=== PATIENT | female | born 1950 | race Caucasian/White ===

== ENCOUNTER 2022-07-07 09:38 | Day surgery (SDC) | payer MEDICARE, SELFPAY ==
--- NOTE | 2022-07-06 08:48 | HO.ANESPROP2 ---
Documented by User: Emilee Malave NP 07/06/22 10:39 HPI - Anesthesia Eval Consult details Narrative: 72yo F for Colonoscopy CKD St 3. Follows renal yearly. Stable at 07/2021 visit. Baseline creat = 1.3-1.9 [facility] Past Medical History Medical History (Updated 07/06/22 @ 10:07 by Emilee Malave NP) Chronic kidney disease CVA (cerebral vascular accident) Diabetes mellitus GERD (gastroesophageal reflux disease) HTN (hypertension) Hyperlipidemia Nephrolithiasis Surgical History Surgical History (Updated 07/07/22 @ 09:43 by Katerine Schwartz) H/O eye surgery History of cataract surgery History of colonoscopy Social History Social History Patient Tobacco Use Status: Never used Tobacco Use of substances other than those prescribed or required for medical reasons: No Are you DNR?: Yes Advance Directives: No Advance Directives Information Provided: Yes Meds Allergies Allergy/AdvReac Type Severity Reaction Status Date / Time [facility] AdvReac Vomiting Verified 07/07/22 09:43 lisinopril AdvReac Cough Verified 07/07/22 09:43 Home Medications Medication Instructions Recorded Confirmed Last Taken Type atorvastatin 40 mg tablet 40 mg PO DAILY 07/06/22 07/07/22 Unknown History clopidogrel 75 mg tablet 75 mg PO DAILY 07/06/22 07/07/22 06/30/22 History empagliflozin 10 mg tablet 10 mg PO DAILY 07/06/22 07/07/22 Unknown History (Jardiance) famotidine 20 mg tablet 20 mg PO DAILY 07/06/22 07/07/22 Unknown History glipizide 5 mg tablet, extended 15 mg PO 07/06/22 Unknown History release 24 hr hydrochlorothiazide 25 mg tablet 25 mg PO BID 07/06/22 07/07/22 07/05/22 History insulin degludec 200 unit/mL (3 50 unit subcut 07/06/22 07/07/22 08:00 History mL) subcutaneous pen (Tresiba 20 UNITS FlexTouch U-200 insulin) losartan 100 mg tablet 100 mg PO DAILY 07/06/22 07/07/22 07/07/22 History pantoprazole 40 mg tablet,delayed 40 mg PO DAILY 07/06/22 07/07/22 Unknown History release semaglutide 0.25 mg or 0.5 mg (2 0.25 mg subcut DIRECTED 07/06/22 07/07/22 Unknown History mg/1.5 mL) subcutaneous pen injector (Ozempic) Exam Exam Date and Time: July 06, [id number] Assessment and Plan Assessment Anesthesia Assessment: Chart Reviewed Documented by User: Christine Hurley MD 07/07/22 11:10 [facility] Past Medical History Medical History (Updated 07/06/22 @ 10:07 by Emilee Malave NP) Chronic kidney disease CVA (cerebral vascular accident) Diabetes mellitus GERD (gastroesophageal reflux disease) HTN (hypertension) Hyperlipidemia Nephrolithiasis Family History Family history of problems with anesthesia: No Surgical History Surgical History (Updated 07/07/22 @ 09:43 by Katerine Schwartz) H/O eye surgery History of cataract surgery History of colonoscopy History of Problems with Anesthesia: No Social History Social History Patient Tobacco Use Status: Never used Tobacco Use of substances other than those prescribed or required for medical reasons: No Are you DNR?: Yes Advance Directives: No Advance Directives Information Provided: Yes Meds Allergies Allergy/AdvReac Type Severity Reaction Status Date / Time dulaglutide [From [facility]] AdvReac Vomiting Verified 07/07/22 09:43 lisinopril AdvReac Cough Verified 07/07/22 09:43 Home Medications Medication Instructions Recorded Confirmed Last Taken Type atorvastatin 40 mg tablet 40 mg PO DAILY 07/06/22 07/07/22 Unknown History clopidogrel 75 mg tablet 75 mg PO DAILY 07/06/22 07/07/22 06/30/22 History empagliflozin 10 mg tablet 10 mg PO DAILY 07/06/22 07/07/22 Unknown History (Jardiance) famotidine 20 mg tablet 20 mg PO DAILY 07/06/22 07/07/22 Unknown History glipizide 5 mg tablet, extended 15 mg PO 07/06/22 Unknown History release 24 hr hydrochlorothiazide 25 mg tablet 25 mg PO BID 07/06/22 07/07/22 07/05/22 History insulin degludec 200 unit/mL (3 50 unit subcut 07/06/22 07/07/22 08:00 History mL) subcutaneous pen (Tresiba 20 UNITS FlexTouch U-200 insulin) losartan 100 mg tablet 100 mg PO DAILY 07/06/22 07/07/22 07/07/22 History pantoprazole 40 mg tablet,delayed 40 mg PO DAILY 07/06/22 07/07/22 Unknown History release semaglutide 0.25 mg or 0.5 mg (2 0.25 mg subcut DIRECTED 07/06/22 07/07/22 Unknown History mg/1.5 mL) subcutaneous pen injector (Ozempic) Exam Airway Mallampati Class: II TM Dist: >3cm Neck ROM: Full Heart: rr Lungs: cta Assessment and Plan Assessment Anesthesia Assessment: Anesthesia Plan Discussed Final Anesthetic Review Family History of Problems with Anesthesia: No History of Problems with Anesthesia: No NPO: Yes ASA Class: II Final Preanesthetic Review: No Changes in Pt Med Stat, Meds/Allgs Chart Reviewed, Consent Obtained/Reviewed and Anes Risks/Benef Reviewed Patient Risk: Low Procedure Risk: Low Anesthetic Plan Anesthetic Plan: MAC: Disposition: Standard PACU
[2022-07-07 09:45] VITALS: BMI 28.6
[2022-07-07 09:55] LABS: Glucose, Whole Blood 113 mg/dL (60-115)
[2022-07-07 09:57] VITALS: BP 118/63; PULSE 82; RESP 16; TEMP 36.7; O2SAT 97
[2022-07-07] MEDS: Lactated Ringers 1,000 ML 100 ML IVCONT (10:04)
--- NOTE | 2022-07-07 10:11 | PC.NURSE ---
PATIENTS HEALTH CARE PROXY IS DAUGHTER SHARAN LINDO [phone]
--- NOTE | 2022-07-07 10:30 | P.HPSUR_ITS ---
Pre-Procedural Eval Section A Date of Service: 07/07/22 Section B Chief Complaint: Encounter for screening for malignant neoplasm of Details of Present Illness: screening Relevant Family History (Specify if Yes): No Relevant Social History: None Present Medications: see Short Stay Collaborative assessment Medical History: No relevant PMH History of Previous Operations: No relevant previous surgery Allergies: Allergies Allergy/AdvReac Type Severity Reaction Status Date / Time dulaglutide [From [facility]] AdvReac Vomiting Verified 07/07/22 09:43 lisinopril AdvReac Cough Verified 07/07/22 09:43 Review of Systems Sugical H&P ROS: Negative: Constitution, Cardiovascular, Respiratory, Neurological, Psychiatric, Hem-Onc, Allergic/Immunologic, Gastrointestinal, Genitourinary, Musculoskeletal, Integumentary, Endocrine and Eyes/Ears /Nose/Throat Exam Surgical H&P Exam: Normal: HEENT, Normal: Heart, Normal: Lungs, Normal: Extremities, Normal: Abdomen, Normal: Skin and Normal: Neurological Plan Diagnosis/Plan: Unchanged I have reviewed the history and physical and performed a pertinent physical examination on my patient. No changes have occurred unless specified. Time Spent With Patient Time: Total time managing care of this patient today ____ minutes.
--- NOTE | 2022-07-07 11:20 | PM.OP ---
Brief Operative Note Date of Service: 07/07/22 Pre-op diagnosis: screening Post-op diagnosis: same Procedure: colonoscopy Surgeon: Laron Suarez Anesthesia: MAC Was an Performance Test Engineer used for this Procedure?: No Estimated blood loss (mL): 2 Pathology: none sent Condition: stable Disposition: PACU
[2022-07-07 11:25] VITALS: BP 79/39; PULSE 70; RESP 16; TEMP 36.2; O2SAT 98
[2022-07-07 11:40] VITALS: BP 109/58; PULSE 74; RESP 16; TEMP 36.8; O2SAT 99
--- NOTE | 2022-07-07 12:08 | OP_ITS ---
DATE OF SERVICE: 07/07/2022 SURGEON: Laron Suarez MD INDICATIONS: Colon cancer screening. PREOPERATIVE DIAGNOSIS: POSTOPERATIVE DIAGNOSIS: PROCEDURE PERFORMED: Colonoscopy to the terminal ileum with snare polypectomy and biopsy. ESTIMATED BLOOD LOSS: COMPLICATIONS: ANESTHESIA: Monitored anesthesia care. ASSISTANTS: SPECIMENS: DESCRIPTION OF PROCEDURE: A history and physical was performed. The risks and benefits of the procedure were explained to the patient. Informed consent was obtained. The patient was placed in the left lateral decubitus position. A digital rectal exam was performed and was found to be normal. The Olympus pediatric video colonoscope was introduced into the rectum and advanced to the cecum without difficulty. The cecum was identified by transillumination, palpation, and identification of the ileocecal valve. Examination was performed. The scope was removed. She tolerated the procedure well and was returned to the recovery area in stable condition. FINDINGS: The terminal ileum was examined and appeared normal. The visualized colonic mucosa was normal. There was some stool left, mainly liquid, which was suctioned and some small chunks which were not suctioned. This limited the sensitivity examination for detection of small polyps to a minor degree 3 polyps were identified and removed using a combination of a hot snare and biopsy forceps. The first 2 were snared and were located at the hepatic flexure and 55 cm. The 3rd polyp was at 30 cm and measured less than 5 mm, this was removed with a biopsy forceps. There was moderate sigmoid diverticulosis with scattered diverticula throughout the remainder of the colon. No other polyps were identified. Retroflexed examination showed moderate-sized internal hemorrhoids. IMPRESSION: Colon polyps. RECOMMENDATION: Follow up the biopsy results. MD ARMINDA Greene/GOYOL / [id number]
== END 2022-07-07 12:28 | disposition home or self-care (01) ==
PROVIDERS: PCP Family Medicine; Visit Provider Internal Medicine Gastroenterology
PROC: 0DJD8ZZ Inspection of Lower Intestinal Tract, Via Natural or Artificial Opening Endoscopic (ICD-10-PCS; CPT 45378; principal; 2022-07-07 10:50)
DX: Z12.11 Encounter for screening for malignant neoplasm of colon (principal); Z86.010 Personal history of colon polyps; D12.3 Benign neoplasm of transverse colon; D12.5 Benign neoplasm of sigmoid colon; K63.5 Polyp of colon; K21.9 Gastro-esophageal reflux disease without esophagitis; E78.5 Hyperlipidemia, unspecified; E11.22 Type 2 diabetes mellitus with diabetic chronic kidney disease; I12.9 Hypertensive chronic kidney disease with stage 1 through stage 4 chronic kidney disease, or unspecified chronic kidney disease; N18.4 Chronic kidney disease, stage 4 (severe); Z79.4 Long term (current) use of insulin; Z79.84 Long term (current) use of oral hypoglycemic drugs; Z79.899 Other long term (current) drug therapy; Z88.8 Allergy status to other drugs, medicaments and biological substances; Z87.442 Personal history of urinary calculi
CPT/HCPCS: 45385; 45380; 82947; 88305